=== PATIENT | female | born 1990 | race African-American/Black ===

== ENCOUNTER 2020-04-17 11:29 | Emergency (ER) | payer SELFPAY ==
[~2020-04-17] VITALS: Ht 165.1 cm; Wt 59.0 kg
[2020-04-17 11:44] VITALS: BP 98/57
[2020-04-17 13:01] LABS: Urine Bacteria NONE SEEN /hpf (None Seen); Urine Blood Negative /uL (Negative); Urine Mucus FEW (None Seen); Urine WBC 1 /hpf (0 - 5)
== END 2020-04-17 13:42 | disposition home or self-care (01) ==
LOC: ER 11:29
DX: Z32.01 Encounter for pregnancy test, result positive (principal)
CPT/HCPCS: 36415; 81001; 84702

== ENCOUNTER 2020-04-19 11:59 | Emergency (ER) | payer SELFPAY ==
[~2020-04-19] VITALS: Ht 165.1 cm; Wt 59.0 kg
[2020-04-19 14:33] VITALS: BP 96/48
== END 2020-04-19 14:42 | disposition home or self-care (01) ==
LOC: ER 11:59
DX: Z34.91 Encounter for supervision of normal pregnancy, unspecified, first trimester (principal); Z3A.01 Less than 8 weeks gestation of pregnancy

== ENCOUNTER → 2020-07-01 | Emergency (ER) | payer SELFPAY ==
[~2020-07-01] VITALS: Ht 165.1 cm; Wt 81.6 kg
[2020-07-01 13:16] VITALS: BP 113/68
== END | disposition left against medical advice (07) ==
LOC: ER 12:30
DX: R51.9 Headache, unspecified (principal); Z53.21 Procedure and treatment not carried out due to patient leaving prior to being seen by health care provider